=== PATIENT | male | born 1980 | race Caucasian/White ===

== ENCOUNTER → 2018-06-30 13:38 | Outpatient (CLI) | payer OTHER, MEDICAID, SELFPAY | PROVIDERS: PCP Family Medicine; Visit Provider Physician Assistant | DX: Z11.3 Encounter for screening for infections with a predominantly sexual mode of transmission (principal) | CPT/HCPCS: 87210 ==

== ENCOUNTER → 2018-06-30 13:43 | Outpatient (CLI) | payer OTHER, MEDICAID, SELFPAY ==
[2018-06-30 16:11] LABS: Urine Chlamydia NOT DETECTED; Urine N gonorrhoeae NOT DETECTED
[2018-06-30 18:11] LABS: HIV 1 and 2 Antibody NEGATIVE (NEGATIVE); Hep C Virus Ab w/Reflex Quant NEGATIVE s/c (NEGATIVE)
[2018-07-02 11:24] LABS: RPR Screen Nonreactive (Nonreactive)
[2018-07-02 13:31] LABS: HSV 1 IgM Screen Negative (Negative); HSV 2 IgM Screen Negative (Negative)
[2018-07-02 14:10] LABS: Hepatitis B Core Antibody Nonreactive (Nonreactive)
== END ==
PROVIDERS: PCP Family Medicine; Visit Provider Physician Assistant
DX: Z11.3 Encounter for screening for infections with a predominantly sexual mode of transmission (principal)
CPT/HCPCS: 36415; 86592; 86694; 86703; 86704; 86803; 87210; 87491; 87591

== ENCOUNTER → 2021-04-05 14:14 | Outpatient (CLI) | payer OTHER, MEDICAID, SELFPAY ==
[2021-04-05 14:42] LABS: Add Manual Diff / Slide Review NO; Basophils Absolute Auto 0 /uL (0-100); Basophils Percent Auto 0.6 % (0-2); Eosinophils Absolute Auto 300 /uL (0-450); Eosinophils Percent Auto 4.5 % (2-4); Hematocrit 48.3 % (41-53); Hemoglobin 17.1 g/dL (13.5-17.5); Lymphocytes Absolute Auto 1400 /uL (1100-4500); Lymphocytes Percent Auto 18.6 % (25-40); Mean Corpuscular HGB Conc 35.3 % (30-36); Mean Corpuscular Hemoglobin 32.6 PG (26-34); Mean Corpuscular Volume 92.2 fL (80-100); Monocytes Absolute Auto 800 /uL (0-900); Monocytes Percent Auto 10.5 % (3-14); Neutrophils Absolute Auto 5100 /uL (1500-7000); Neutrophils Percent Auto 65.8 % (50-75); Platelet Count 242 X10^3/uL (150-400); Red Blood Cell Count 5.24 X10^6/uL (4.5-5.9); Red Cell Distribution Width 12.8 % (11.6-14.8); White Blood Cell Count 7.7 X10^3/uL (4.5-11.0)
[2021-04-05 15:04] LABS: Erythrocyte Sedimentation Rate 4 MM/HR (0-15)
[2021-04-05 15:05] LABS: Alanine Aminotransferase 60 IU/L (<50); Albumin 4.6 g/dL (3.5-5.0); Albumin Globulin Ratio 1.5 (1.0-2.8); Alkaline Phosphatase 65 U/L (38-126); Aspartate Aminotransferase 44 IU/L (17-59); BUN Creatinine Ratio 10.2 (6-22); Bilirubin Total 0.7 mg/dL (0.2-1.3); Blood Urea Nitrogen 9 mg/dL (9-20); C-Reactive Protein Quant < 0.5 mg/dL (<1.0); Calcium 9.3 mg/dL (8.4-10.2); Carbon Dioxide 26 mmol/L (22-32); Chloride 101 mmol/L (98-107); Estimated Glomerular Filt Rate > 60.0 mL/min (>60); Globulin 3.1 g/dL (1.7-4.1); Glucose 88 mg/dL (70-100); HEMOLYSIS 16 (0-50); Sodium 138 mmol/L (137-145); Total Protein 7.7 g/dL (6.3-8.2)
== END ==
PROVIDERS: PCP Internal Medicine; Referring Provider Internal Medicine; Visit Provider Internal Medicine
DX: R63.5 Abnormal weight gain (principal); R59.1 Generalized enlarged lymph nodes; R73.9 Hyperglycemia, unspecified
CPT/HCPCS: 36415; 80053; 83036; 84443; 85025; 85651; 86140

== ENCOUNTER → 2021-05-15 13:00 | Outpatient (CLI) | payer OTHER, MEDICAID, SELFPAY ==
[2021-05-15 14:56] LABS: COVID19 -Nasal RAPID Negative (Negative)
== END ==
PROVIDERS: PCP Internal Medicine; Visit Provider Surgery
DX: Z01.812 Encounter for preprocedural laboratory examination (principal); Z20.822 Contact with and (suspected) exposure to COVID-19
CPT/HCPCS: 87635; C9803

== ENCOUNTER 2021-05-16 07:36 | Day surgery (SDC) | payer OTHER, MEDICAID, SELFPAY ==
[2021-05-15 09:30] VITALS: BMI 27.0
[2021-05-16] VITALS (8 sets, daily range): BP systolic 99–142; BP diastolic 71–96; PULSE 68–92; RESP 10–16; TEMP 36.2–36.6; O2SAT 94–97; BMI 27.0
--- NOTE | 2021-05-16 08:07 | PM.PREOP ---
Pre-operative Note Interval Note History & Physical reviewed/Exam performed by Physician: Yes Changes to H&P: No
[2021-05-16] MEDS: GABAPENTIN 300 MG CAPSULE PO (08:24)
[2021-05-16] MEDS: ACETAMINOPHEN 325 MG TABLET 975 MG PO (08:24)
[2021-05-16] MEDS: LACTATED RINGERS 1,000 ML 42 ML IV (08:26)
[2021-05-16] MEDS: CLINDAMYCIN 900 MG/50 ML PIGGYBACK 50 MG IV (09:00)
[2021-05-16] MEDS: BUPIVACAINE 0.25% (PF) VIAL 30 ML INJ (09:16)
--- NOTE | 2021-05-16 09:53 | SUR.OPER ---
Supine on padded OR bed, head on pillow, arms secured on padded arm boards at <90 degrees abduction, legs uncrossed, safety belt at thigh, tape over blanket over lower legs.
--- NOTE | 2021-05-16 15:40 | PM.OP.1 ---
Operative Date/Time/Diagnoses Date of procedure: 05/16/21 Time of procedure: 15:40 Pre-op diagnosis: Umbilical hernia Post-op diagnosis: same Procedure & Clinicians Procedure: Open umbilical hernia repair Same procedure as scheduled: Yes Indications: Reducible umbilical hernia Surgeon: Danny Andres Anesthesia Type: General Operative Notes Findings: 1 cm fascial defect containing viable omentum Specimen(s): none sent Estimated Blood Loss (mL): 10 Procedure in detail: Patient was brought to the operating room placed supine on the table. Bilateral lower extremity compression devices were applied. General anesthesia was induced and they were intubated with an endotracheal tube. They received 2 g of Ancef prior to skin incision. They were prepped and draped in sterile fashion. A time-out was performed. A curvilinear incision was made inferior to the umbilicus. The subcutaneous tissues were divided. The umbilical hernia was identified and the hernia sac was dissected off the umbilical skin and circumferentially off of the fascia defect. The hernia sac was sharply opened and contained viable omentum. The omentum was reduced back into the abdomen. Using blunt dissection I carefully carefully freed the hernia sac from beneath the fascia. The fascia defect was 1.0 cm in maximal diameter. Ethibond suture in interupted fashion was used to close the fascial defect without tension. The umbilical skin was tacked to the subcutaneous tissues and then the remainder of the subcutaneous tissues were reapproximated using 3 0 Vicry,l skin closed with 4 0 Monocryl followed by the application of Dermabond and Steri-Strips. Sponge instrument count at the end of the operation was correct. Patient tolerated procedure well was extubated and transferred to postoperative care unit in stable condition. Complications: none Post-operative Condition: stable Disposition: same day surgery
== END 2021-05-16 10:43 | disposition home or self-care (01) ==
PROVIDERS: PCP Internal Medicine; Referring Provider Surgery; Visit Provider Surgery
PROC: (CPT 49585; principal; 2021-05-16 08:45)
DX: K42.9 Umbilical hernia without obstruction or gangrene (principal)
CPT/HCPCS: 49585; J1100; J1885; J2250; J2405; J2704; J3010

== ENCOUNTER 2021-09-11 16:11 | Emergency (ER) | payer OTHER, MEDICAID, SELFPAY ==
[2021-09-11 16:18] VITALS: BP 123/61; PULSE 69; RESP 20; TEMP 36.6; O2SAT 97
== END 2021-09-11 19:22 | disposition left against medical advice (07) ==
PROVIDERS: Emergency Provider Emergency Medicine; PCP Internal Medicine
DX: T23.252A Burn of second degree of left palm, initial encounter (principal)
CPT/HCPCS: 99281

== ENCOUNTER 2022-11-27 12:07 | Emergency (ER) | payer OTHER, MEDICAID, SELFPAY ==
[2022-11-27 12:10] VITALS: BP 137/65; PULSE 77; RESP 15; TEMP 36.6; O2SAT 97; BMI 26.2
[2022-11-27 12:15] VITALS: BP 136/88; PULSE 62; RESP 17; O2SAT 98
--- NOTE | 2022-11-27 12:16 | DI.RAD.S_ITS ---
PROCEDURE: XR CHEST 1V INDICATIONS: chest pain TECHNIQUE: One view of the chest was acquired. COMPARISON: None. FINDINGS: Surgical changes and devices: None. Lungs and pleura: Lungs are clear. No pleural effusions or pneumothorax. Mediastinum: Mediastinal contours appear normal. Heart size is normal. Bones and chest wall: No suspicious bony lesions. Overlying soft tissues appear unremarkable. IMPRESSION: No acute cardiopulmonary process. Dictated by: Jimy Ceballos M.D. on 11/27/2022 at 12:32 Approved by: Jimy Ceballos M.D. on 11/27/2022 at 12:32
[2022-11-27] MEDS: ASPIRIN 81 MG CHEW TAB 324 MG PO (12:19)
[2022-11-27 12:30] VITALS: BP 128/81; PULSE 61; RESP 15; O2SAT 96
[2022-11-27 12:35] LABS: Add Manual Diff / Slide Review NO; Basophils Absolute Auto 0 /uL (0-100); Basophils Percent Auto 0.5 % (0-2); Eosinophils Absolute Auto 600 /uL (0-450); Eosinophils Percent Auto 7.8 % (2-4); Hemoglobin 15.5 g/dL (13.5-17.5); Lymphocytes Absolute Auto 1200 /uL (1100-4500); Lymphocytes Percent Auto 15.4 % (25-40); Mean Corpuscular HGB Conc 34.5 % (30-36); Mean Corpuscular Hemoglobin 32.2 PG (26-34); Mean Corpuscular Volume 93.4 fL (80-100); Monocytes Absolute Auto 900 /uL (0-900); Monocytes Percent Auto 11.5 % (3-14); Neutrophils Absolute Auto 5300 /uL (1500-7000); Neutrophils Percent Auto 64.8 % (50-75); Platelet Count 217 X10^3/uL (150-400); Red Blood Cell Count 4.82 X10^6/uL (4.5-5.9); Red Cell Distribution Width 12.9 % (11.6-14.8); White Blood Cell Count 8.1 X10^3/uL (4.5-11.0)
--- NOTE | 2022-11-27 12:36 | ED.CHESTPAIN ---
HPI - Chest Pain General Chief Complaint: Chest Pain Stated Complaint: weight gain/chest constrictions/shooting pains rib Time Seen by Provider: 11/27/22 12:24 Source: patient Mode of arrival: Ambulatory Limitations: no limitations History of Present Illness HPI narrative: Patient is a 42-year-old male who came to the emergency department today because a couple days ago he had shooting pains in the left side of his rib. He states that it seemed to get worse when he was bending over. It also causes him to have some shortness of breath. Also somewhat worse with palpation. It has since improved somewhat. He is not had any vomiting. No coughing. No fevers. No abdominal pain. No lower extremity swelling. He also states that he has gained about 20 lb over the last several months and specifically 10 lb over the past couple days although he states that he feels less bloated over the past couple days because he is ?taking it easy?. He also states that when the episode started he had ?spasms? all over his body. Related Data Home Medications Medication Instructions Recorded Confirmed No Known Home Medications 07/13/21 07/13/21 Allergies Allergy/AdvReac Type Severity Reaction Status Date / Time Penicillins Allergy Severe ANAPHYLAXIS Verified 11/27/22 12:10 oxycodone Allergy Mild ITCHING Verified 11/27/22 12:10 fentanyl AdvReac Severe Severe Verified 11/27/22 12:10 hives TOBACCO Allergy Intermediate CONGESTION Uncoded 07/13/21 13:32 FLU LIKE SYMPTOMS, WATERY EYES Review of Systems Review of Systems ROS Unobtainable: All systems reviewed & are unremarkable except as noted in HPI and below Patient History Medical History History of depression (03/21/16) Mixed hyperlipidemia (03/21/16) Ocular migraine Seasonal allergic rhinitis (03/21/16) Umbilical hernia without obstruction and without gangrene Surgical History Anesthesia History of third molar tooth extraction Zygomatic arch fracture (~06/04/19) Social History household members: none Smoking Status: Current every day smoker alcohol intake: never Smoking Status: Current every day smoker alcohol intake frequency: holidays/special occasions only Substance Use Type: does not use Exam Initial Vital Signs Initial Vital Signs: Vital Signs Temperature 97.8 F 11/27/22 12:10 Pulse Rate 77 11/27/22 12:10 Respiratory Rate 15 11/27/22 12:10 Blood Pressure 137/65 11/27/22 12:10 Pulse Oximetry 97 11/27/22 12:10 Oxygen Delivery Method Room Air 11/27/22 12:10 Const General: cooperative and No ill appearing HENMT Head: normal to inspection and normocephalic Resp Effort & Inspection: normal respiratory effort Auscultation: clear to auscultation bilaterally Cardio Rate: regular rate Rhythm: regular rhythm GI Inspection: normal to inspection and non-distended Skin General: no rashes or lesions noted Neuro General: patient alert, patient awake, patient oriented x3 and moves all extremities Cognition: normal cognition Speech: speech normal Extrem General: No edema Scores HEART Score Heart Score history: Slightly Suspicious Heart Score EKG: Normal Heart Score Age: < 45 years old Heart Score risk factors: No known risk factors Heart Score troponin: < or = to normal limit Heart Score Total: 0 Course Orders Ordered: ED Orders 11/27/22 12:16 XR chest 1V Stat 11/27/22 12:23 EKG-12 Lead Stat 11/27/22 12:25 Complete Blood Count AUTO DIFF Stat Comprehensive Metabolic Panel Stat Lipase Stat Magnesium Stat PTT Partial Thromboplastin Pedrito Stat Prothrombin Time INR Stat Troponin & CK Cardiac Panel Stat Discontinued Medications Aspirin (Aspirin 81 Mg Chew Tab) 324 mg PO NOW ONE Stop: 11/27/22 12:17 Last Admin: 11/27/22 12:19 Dose: 324 mg Documented By: THEA Vital Signs Vital signs: Vital Signs - 8 hr 11/27/22 12:10 11/27/22 12:15 11/27/22 12:15 Temperature 97.8 F Pulse Rate 77 62 Respiratory Rate 15 17 Blood Pressure 137/65 136/88 Pulse Oximetry 97 98 Oxygen Delivery Method Room Air 11/27/22 12:30 11/27/22 12:30 Temperature Pulse Rate 61 Respiratory Rate 15 Blood Pressure 128/81 Pulse Oximetry 96 Oxygen Delivery Method MDM - Chest Pain Lab Data Attestation: I reviewed the patient's lab results. 11/27/22 12:25 11/27/22 12:25 Labs: Lab Results 06/11/27/22 11/27/22 Range/Units 12:25 12:25 12:25 WBC 8.1 (4.5-11.0) X10^3/uL RBC 4.82 (4.5-5.9) X10^6/uL Hgb 15.5 (13.5-17.5) g/dL Hct 45.0 (41-53) % MCV 93.4 (80-100) fL MCH 32.2 (26-34) PG MCHC 34.5 (30-36) % RDW 12.9 (11.6-14.8) % Plt Count 217 (150-400) X10^3/uL Neut % (Auto) 64.8 (50-75) % Lymph % (Auto) 15.4 L (25-40) % [place] % (Auto) 11.5 (3-14) % Eos % (Auto) 7.8 H (2-4) % Baso % (Auto) 0.5 (0-2) % Neut # (Auto) 5300 (9642-4797) /uL Lymph # (Auto) 1200 (2164-6611) /uL [place] # (Auto) 900 (0-900) /uL Eos # (Auto) 600 H (0-450) /uL Baso # (Auto) 0 (0-100) /uL PT 11.8 (10.1-12.7) SECONDS INR 1.0 (0.9-1.3) APTT 31 (26-36) SECONDS Sodium 134 L (137-145) mmol/L Potassium 4.3 (3.4-5.1) mmol/L Chloride 104 (98-107) mmol/L Carbon Dioxide 24 (22-32) mmol/L BUN 13 (9-20) mg/dL Creatinine 0.88 (0.66-1.25) mg/dL Estimated GFR > 60 (>60) mL/min BUN/Creatinine Ratio 14.8 (6-22) Glucose 107 H (70-100) mg/dL Calcium 8.8 (8.4-10.2) mg/dL Magnesium 1.9 (1.6-2.3) mg/dL Total Bilirubin 0.8 (0.2-1.3) mg/dL AST 62 H (17-59) IU/L ALT 108 H (<50) IU/L Alkaline Phosphatase 54 (38-126) U/L Total Creatine Kinase 119 (55-170) U/L CK-MB (CK-2) TNP CK-MB (CK-2) Rel Index TNP Troponin I < 0.012 (0.01-0.034) ng/mL Total Protein 7.0 (6.3-8.2) g/dL Albumin 4.0 (3.5-5.0) g/dL Globulin 3.0 (1.7-4.1) g/dL Albumin/Globulin Ratio 1.3 (1.0-2.8) Lipase 86 (23-300) U/L Imaging Data Chest x-ray: Radiologist's Impression: PROCEDURE:? XR CHEST 1V ? INDICATIONS:? chest pain ? TECHNIQUE:? One view of the chest was acquired.? ? COMPARISON:? None. ? FINDINGS:? ? Surgical changes and devices:? None.? ? Lungs and pleura:? Lungs are clear.? No pleural effusions or pneumothorax.? ? Mediastinum:? Mediastinal contours appear normal.? Heart size is normal.? ? Bones and chest wall:? No suspicious bony lesions.? Overlying soft tissues appear unremarkable.? ? IMPRESSION:? No acute cardiopulmonary process. ECG Data Attestation: I personally reviewed and interpreted this ECG as follows: Interpretation: Sinus rhythm Ventricular rate is 68 Normal axis Normal QRS Normal QTC No ST T wave changes MDM Narrative Medical decision making narrative: Patient has a low risk heart score. Troponin is negative. Chest x-ray is unremarkable. EKG is unremarkable. Patient not in heart failure. I have low suspicion that this is cardiac in origin. He has a follow-up with his primary doctor in approximately 1 week. He was encouraged to keep this appointment. He was given return precautions and follow-up instructions. He expressed understanding Discharge Plan Departure Patient Disposition: Home Clinical Impression: Atypical chest pain Instructions: DI for Atypical Chest Pain Activity Restrictions/Additional Instructions: Recommend that you continue to take all of your medications as directed. Keep your scheduled appointment with your primary doctor. Return to the emergency department for new or worsening symptoms. Prescriptions: No Action No Known Home Medications Referrals: Nacho Rios MD [Primary Care Provider] - Stand Alone Forms: Patient Portal/API
[2022-11-27 12:51] LABS: Prothrombin Time 11.8 SECONDS (10.1-12.7)
[2022-11-27 12:54] LABS: PTT Partial Thromboplastin Tim 31 SECONDS (26-36)
[2022-11-27 12:56] LABS: Alanine Aminotransferase 108 IU/L (<50); Albumin Globulin Ratio 1.3 (1.0-2.8); Alkaline Phosphatase 54 U/L (38-126); Aspartate Aminotransferase 62 IU/L (17-59); BUN Creatinine Ratio 14.8 (6-22); Bilirubin Total 0.8 mg/dL (0.2-1.3); Blood Urea Nitrogen 13 mg/dL (9-20); Calcium 8.8 mg/dL (8.4-10.2); Carbon Dioxide 24 mmol/L (22-32); Chloride 104 mmol/L (98-107); Creatine Kinase 119 U/L (55-170); Estimated Glomerular Filt Rate > 60 mL/min (>60); Glucose 107 mg/dL (70-100); HEMOLYSIS < 15 (0-50); Lipase 86 U/L (23-300); Magnesium 1.9 mg/dL (1.6-2.3); Potassium 4.3 mmol/L (3.4-5.1); Sodium 134 mmol/L (137-145)
[2022-11-27 13:00] VITALS: BP 123/82; PULSE 60; RESP 14; O2SAT 96
[2022-11-27 13:07] LABS: Troponin I < 0.012 ng/mL (0.01-0.034)
== END 2022-11-27 13:32 | disposition home or self-care (01) ==
PROVIDERS: Emergency Provider Emergency Medicine; PCP Internal Medicine
DX: R07.89 Other chest pain (principal); R06.02 Shortness of breath
CPT/HCPCS: 36415; 71045; 80053; 82550; 83690; 83735; 84484; 85025; 85610; 85730; 93005; 93010; 99284

== ENCOUNTER → 2024-03-25 10:35 | Outpatient (CLI) | payer OTHER, MEDICAID, SELFPAY ==
[2024-03-25 12:25] LABS: Add Manual Diff / Slide Review NO; Basophils Absolute Auto 0 /uL (0-100); Basophils Percent Auto 0.5 % (0-2); Eosinophils Absolute Auto 300 /uL (0-450); Hematocrit 44.5 % (41-53); Hemoglobin 15.7 g/dL (13.5-17.5); Lymphocytes Absolute Auto 1700 /uL (1100-4500); Lymphocytes Percent Auto 29.6 % (25-40); Mean Corpuscular HGB Conc 35.3 % (30-36); Mean Corpuscular Hemoglobin 33.3 PG (26-34); Mean Corpuscular Volume 94.5 fL (80-100); Monocytes Absolute Auto 700 /uL (0-900); Monocytes Percent Auto 12.3 % (3-14); Neutrophils Absolute Auto 3000 /uL (1500-7000); Neutrophils Percent Auto 52.6 % (50-75); Platelet Count 243 X10^3/uL (150-400); Red Blood Cell Count 4.71 X10^6/uL (4.5-5.9); Red Cell Distribution Width 12.6 % (11.6-14.8); White Blood Cell Count 5.7 X10^3/uL (4.5-11.0)
[2024-03-25 12:42] LABS: Prothrombin Time 11.4 SECONDS (9.4-12.5)
[2024-03-25 12:45] LABS: PTT Partial Thromboplastin Tim 32 SECONDS (25.1-36.5)
[2024-03-25 12:59] LABS: Alanine Aminotransferase 37 IU/L (<50); Albumin 4.5 g/dL (3.5-5.0); Albumin Globulin Ratio 1.6 (1.0-2.8); Alkaline Phosphatase 46 U/L (38-126); Aspartate Aminotransferase 31 IU/L (17-59); BUN Creatinine Ratio 14.3 (6-22); Bilirubin Total 0.8 mg/dL (0.2-1.3); Blood Urea Nitrogen 11 mg/dL (9-20); Calcium 9.4 mg/dL (8.4-10.2); Carbon Dioxide 28 mmol/L (22-32); Chloride 104 mmol/L (98-107); Cholesterol 187 mg/dL (140-199); Estimated Glomerular Filt Rate > 60 mL/min (>60); Globulin 2.8 g/dL (1.7-4.1); Glucose 96 mg/dL (70-100); HDL Cholesterol 99 mg/dL (40-60); HEMOLYSIS < 15 (0-50); LDL Cholesterol Calculated 80 mg/dL (<100); Potassium 4.2 mmol/L (3.4-5.1); Sodium 138 mmol/L (137-145); Total Protein 7.3 g/dL (6.3-8.2); Triglycerides 39 mg/dL (35-150)
[2024-03-25 13:05] LABS: Hemoglobin A1C% w Est Avg Glu 4.8 % (4.0-6.0)
== END ==
PROVIDERS: PCP Internal Medicine; Referring Provider Internal Medicine; Visit Provider Internal Medicine
DX: E78.2 Mixed hyperlipidemia (principal); R73.9 Hyperglycemia, unspecified; I82.409 Acute embolism and thrombosis of unspecified deep veins of unspecified lower extremity
CPT/HCPCS: 36415; 80053; 80061; 81241; 83036; 85025; 85300; 85303; 85306; 85598; 85610; 85613; 85730; 86147

== ENCOUNTER → 2025-03-10 10:03 | Outpatient (CLI) | payer OTHER, SELFPAY ==
[2025-03-10 12:27] LABS: Urine N gonorrhoeae NOT DETECTED
[2025-03-10 12:47] LABS: Urine Chlamydia NOT DETECTED
[2025-03-10 20:49] LABS: Hepatitis B Surface Antigen NEGATIVE s/c (NEGATIVE)
[2025-03-10 21:04] LABS: HIV 1 & 2 Ab/Ag 4th Gen Combo NEGATIVE (NEGATIVE); Hep C Virus Ab w/Reflex Quant NEGATIVE s/c (NEGATIVE)
== END ==
PROVIDERS: PCP Internal Medicine; Referring Provider Internal Medicine; Visit Provider Internal Medicine
DX: A64 Unspecified sexually transmitted disease (principal)
CPT/HCPCS: 36415; 86592; 86803; 87340; 87389; 87491; 87591